=== PATIENT | female | born 1990 | race Caucasian/White ===

== ENCOUNTER 2016-12-09 18:32 | Emergency (ER) | payer MEDICAID, OTHER ==
[2016-12-09 18:33] VITALS: BMI 33.7
[2016-12-09 18:39] VITALS: RESP 16; TEMP 98.3
--- NOTE | 2016-12-09 19:18 | ED PDOC ---
Arrival/HPI - General Chief Complaint: Abdominal Pain Time Seen by Provider: 12/09/16 18:34 Historian: Patient - History of Present Illness Narrative History of Present Illness (Text): 12/09/16 19:00 This 26 yo female without significant pmh, Gravid, , 17 weeks, presents to this ED c/o pelvic pain since this morning. Patient described pelvic pain as cramping, non-radiating, lasting for few seconds. Denies dysuria, vaginal discharge, vaginal bleeding, rectal pain, recent travel, sick contact, recent travel, leg swelling, calf pain, sob, cp, n/v, or abnormal gait. Time/Duration: Other (since this morning) Context: Home Past Medical History - Provider Review Nursing Documentation Reviewed: Yes - Infectious Disease Hx of Infectious Diseases: None - Tetanus Immunization Tetanus Immunization: Unknown - Past Medical History Past Medical History: No Previous - Cardiac Hx Cardiac Disorders: No - HEENT Other/Comment: GLASSES - Gastrointestinal Hx Hemorrhoids: Yes - Psychiatric Hx Depression: No Hx Substance Use: No - Past Surgical History Past Surgical History: No Previous - Anesthesia Hx Anesthesia: No Hx Anesthesia Reactions: No Hx Malignant Hyperthermia: No - Suicidal Assessment Feels Threatened In Home Enviroment: No Family/Social History - Physician Review Nursing Documentation Reviewed: Yes Family/Social History: No Known Family HX Smoking Status: Light Smoker < 10 Cigarettes Daily Hx Alcohol Use: Yes Hx Substance Use: No Hx Substance Use Treatment: No Allergies/Home Meds Allergies/Adverse Reactions: Allergies No Known Allergies Allergy (Verified 12/09/16 18:33) Home Medications: Home Meds Medication Instructions Recorded Confirmed Multivit/Folic Acid/I 1 tab PO DAILY 12/09/16 12/09/16 [] Review of Systems - Review of Systems Constitutional: Normal. absent: Fatigue, Weight Change, Fevers, Night Sweats Eyes: Normal. absent: Vision Changes ENT: Normal Respiratory: Normal. absent: SOB, Cough Cardiovascular: Normal. absent: Chest Pain, Palpitations, Edema, Calf Pain, LUO , Orthopnea, Syncope Gastrointestinal: Abdominal Pain (pelvic pain). absent: Nausea, Vomiting Genitourinary Female: Normal. absent: Dysuria, Frequency, Hematuria Musculoskeletal: absent: Back Pain, Neck Pain Skin: Normal. absent: Rash Neurological: Normal. absent: Headache, Dizziness, Focal Weakness, Gait Changes , Speech Changes, Facial Droop, Disequilibrium, Seizure Endocrine: Normal Hemo/Lymphatic: Normal Psychiatric: Normal Physical Exam Vital Signs Temp Pulse Resp BP Pulse Ox 12/09/16 21:46 98.3 F 85 16 126/71 98 12/09/16 18:39 98.3 F 98 H 16 120/78 97 Temperature: Afebrile Blood Pressure: Normal Pulse: Regular Respiratory Rate: Normal Appearance: Positive for: Well-Appearing, Non-Toxic, Comfortable Pain Distress: None Mental Status: Positive for: Alert and Oriented X 3 - Systems Exam Head: Present: Atraumatic, Normocephalic Pupils: Present: PERRL Extroacular Muscles: Present: EOMI Conjunctiva: Present: Normal Mouth: Present: Moist Mucous Membranes Neck: Present: Normal Range of Motion, Trachea Midline. No: Meningeal Signs Respiratory/Chest: Present: Clear to Auscultation, Good Air Exchange. No: Respiratory Distress, Accessory Muscle Use, Wheezes, Decreased Breath Sounds, Retracting, Rhonchi, Tender to Palpation Cardiovascular: Present: Regular Rate and Rhythm, Normal S1, S2. No: Murmurs Abdomen: Present: Normal Bowel Sounds, Other (Gravid abdomen). No: Tenderness, Distention, Peritoneal Signs, Rebound, Guarding Back: Present: Normal Inspection. No: CVA Tenderness Upper Extremity: Present: Normal Inspection, Normal ROM, NORMAL PULSES, Neurovascularly Intact, Capillary Refill < 2s. No: Cyanosis, Edema Lower Extremity: Present: Normal Inspection, NORMAL PULSES, Normal ROM, Neurovascularly Intact, Capillary Refill < 2 s. No: Edema, CALF TENDERNESS Neurological: Present: GCS=15, CN II-XII Intact, Speech Normal, Motor Func Grossly Intact, Normal Sensory Function, Normal Cerebellar Funct, Gait Normal, Memory Normal Skin: Present: Warm, Dry, Normal Color. No: Rashes Psychiatric: Present: Alert, Oriented x 3, Normal Insight, Normal Concentration Medical Decision Making ED Course and Treatment: 12/09/16 21:20 Re-evaluation. Patient feels better. Discussed results and plan with patient who expresses understanding. All questions answered and there is agreement with the plan to discharge home with instructions. Patient stable for discharge. Return if symptoms persist or worsen. Re-evaluation Time: 21:20 Reassessment Condition: Re-examined, Improved - Lab Interpretations Microbiology Results: Microbiology Results 12/09/16 19:52 Urine,Clean Catch Urine Culture - Final Streptococcus Viridans Lab Results: 12/09/16 19:47 12/09/16 19:47 Lab Results 12/09/16 19:52: Urine Color Yellow, Urine Appearance Clear, Urine pH 6.0, Ur Specific [place] 1.025, Urine Protein Trace H, Urine Glucose (UA) Negative, Urine Ketones Trace H, Urine Blood Negative, Urine Nitrate Negative, Urine Bilirubin Negative, Urine Urobilinogen 1.0 H, Ur Leukocyte Esterase Negative, Urine RBC 1 - 3, Urine WBC 2 - 5, Ur Epithelial Cells 1 - 3, Calcium Oxalate Crystal Occ, Urine Bacteria Mod, Urine HCG, Qual Positive 12/09/16 19:50: Blood Type B POSITIVE, Antibody Screen Negative, BBK History Checked Patient has bt 12/09/16 19:47: Beta HCG, Quant 6137.20 H 12/09/16 19:47: Sodium 137, Potassium 3.8, Chloride 105, Carbon Dioxide 24, Anion Gap 12, BUN 9, Creatinine 0.7, Est GFR ( Amer) > 60, Est GFR (Non- Af Amer) > 60, Random Glucose 121 H, Calcium 9.7, Total Bilirubin 0.3, AST 41 H , ALT 79 H, Alkaline Phosphatase 93, Total Protein 6.8, Albumin 3.3, Globulin 3.5, Albumin/Globulin Ratio 0.9 L 12/09/16 19:47: PT 10.7, INR 0.99, APTT 28.2 12/09/16 19:47: WBC 10.6, RBC 3.87, Hgb 11.2 L, Hct 32.7 L, MCV 84.5, MCH 28.9, MCHC 34.3, RDW 14.3, Plt Count 359, MPV 9.5, Gran % 72.1 H, Lymph % (Auto) 20.2 L, [place] % (Auto) 5.5, Eos % (Auto) 2.0, Baso % (Auto) 0.2, Gran # 7.61 H, Lymph # 2.1, [place] # 0.6, Eos # 0.2, Baso # 0.02 - RAD Interpretation Narrative RAD Interpretations (Text): 12/09/16 21:19 [facility] FINDINGS: Fetus: Single live intrauterine gestation. Heart rate: heart rate of 150 beats per minute. Presentation: Cephalic. Placenta: Anterior placenta. No placenta previa or abruption. Amniotic fluid: Normal. Anatomy: No gross anomaly is appreciated. BIOMETRICS Gestational age by US: Estimated gestational age of 19 weeks 6 days by measurements. EFW: Estimated weight of 312 g. BPD: 4.5 cm, correlating with 19 weeks 4 days. HC: 17.5 cm, correlating with 20 weeks 0 days. AC: 14.3 cm, correlating with 19 weeks 5 days. FL: 3.2 cm, correlating with 19 weeks 6 days. MATERNAL: Uterus: Unremarkable. No myometrial mass. Cervix: No cervical dilatation or effacement. Adnexa: Ovaries: Not visualized. No adnexal masses. Free fluid: No significant free fluid. IMPRESSION: 1. Single live intrauterine gestation. 2. Incidental/non-acute findings are described above. Thank you for allowing us to participate in the care of your patient. Dictated and Authenticated by: Tian Weller MD 12/09/2016 9:01 PM Eastern Time ([place] & [place] Radiology Orders: 12/09/16 19:32 AGE [US] Stat - Medication Orders Current Medication Orders: Discontinued Medications Cephalexin Monohydrate (Keflex) 500 mg PO STAT STA PRN Reason: Protocol Stop: 12/09/16 21:22 Last Admin: 12/09/16 21:00 Dose: 500 mg Disposition/Present on Arrival - Present on Arrival Any Indicators Present on Arrival: No History of DVT/PE: No History of Uncontrolled Diabetes: No Urinary Catheter: No History of Decub. Ulcer: No History Surgical Site Infection Following: None - Disposition Have Diagnosis and Disposition been Completed?: Yes Diagnosis: Pelvic pain affecting , Acute cystitis during Disposition: HOME/ ROUTINE Disposition Time: 21:20 Patient Plan: Discharge Condition: GOOD Discharge Instructions (ExitCare): Pelvic Pain (ED) Additional Instructions: Call private [facility] doctor for follow up visit in 1-2 days. Take medication as instructed. Return to emergency if symptoms worsen. Prescriptions: Cephalexin [Keflex] 500 mg PO BID #10 capsule Referrals: Khanh Peter MD [Primary Care Provider] - Follow up with primary [facility] [Outside] - [facility] [Outside] - Follow up with primary Forms: WORK NOTE
[2016-12-09 19:53] LABS: ADD MANUAL DIFF? NO
[2016-12-09 20:03] LABS: URINE BILIRUBIN NEGATIVE (NEGATIVE); URINE BLOOD NEGATIVE (NEGATIVE); URINE GLUCOSE (UA) NEGATIVE (NEGATIVE); URINE KETONE TRACE mg/dL (NEGATIVE); URINE LEUKOCYTE ESTERASE NEGATIVE Leu/uL (NEGATIVE); URINE PROTEIN TRACE mg/dL (<30 mg/dL)
[2016-12-09 20:04] LABS: BASO # 0.02 K/mm3 (0.0-2.0); BASO % 0.2 % (0.0-3.0); EOS # 0.2 (0.0-0.7); GRAN # 7.61 (1.4-6.5); GRAN % 72.1 % (50.0-68.0); HEMATOCRIT 32.7 % (36.0-48.0); LYMPH # 2.1 (1.2-3.4); LYMPH % 20.2 % (22.0-35.0); MEAN CELL VOLUME 84.5 fL (80.0-105.0); MEAN CORPUSCULAR HEMOGLOBIN 28.9 pg (25.0-35.0); MEAN CORPUSCULAR HGB CONC 34.3 g/dl (31.0-37.0); MEAN PLATELET VOLUME 9.5 fl (7.0-11.0); MONO # 0.6 (0.1-0.6); MONO % 5.5 % (1.0-6.0); PLATELET COUNT 359 10^3/uL (120.0-450.0); RED CELL DISTRIBUTION WIDTH 14.3 % (11.5-14.5); WHITE BLOOD COUNT 10.6 10^3/ul (4.5-11.0)
[2016-12-09 20:08] LABS: ALB/GLOB RATIO 0.9 (1.1-1.8); ALKALINE PHOSPHATASE 93 U/L (38-133); ALT/SGPT 79 U/L (7-56); AST/SGOT 41 U/L (15-39); BILIRUBIN,TOTAL 0.3 mg/dL (0.2-1.3); BLOOD UREA NITROGEN 9 mg/dL (7-21); CALCIUM 9.7 mg/dL (8.4-10.5); CARBON DIOXIDE 24 mmol/L (21-33); CHLORIDE 105 mmol/L (98-107); GFR AFRICAN-AMERICAN > 60; GLUCOSE,RANDOM 121 mg/dL (70-110); POTASSIUM 3.8 mmol/L (3.6-5.0); SODIUM 137 mmol/L (132-148); TOTAL PROTEIN 6.8 g/dL (5.8-8.3)
[2016-12-09 20:10] LABS: INR 0.99 (0.93-1.08); PARTIAL THROMBOPLASTIN TIME 28.2 Seconds (23.7-30.8)
[2016-12-09 20:11] LABS: URINE APPEARANCE CLEAR (CLEAR); URINE COLOR YELLOW (YELLOW)
[2016-12-09 20:25] LABS: URINE CALCIUM OXALATE CRYSTALS OCC /hpf
[2016-12-09 20:26] LABS: URINE BACTERIA MOD (NEG)
--- NOTE | 2016-12-09 21:01 | US ---
EXAM: US After First Trimester, Transabdominal CLINICAL HISTORY: 26 years old, female; Pain; complicated by abdominal or pelvic pain; Right lower quadrant; Second trimester; Gestational age or lmp: ? ; ; Additional info: B. L pelvic pain TECHNIQUE: Real-time transabdominal obstetrical ultrasound of the maternal pelvis and a second or third trimester with image documentation. COMPARISON: No relevant prior studies available. FINDINGS: Fetus: Single live intrauterine gestation. Heart rate: heart rate of 150 beats per minute. Presentation: Cephalic. Placenta: Anterior placenta. No placenta previa or abruption. Amniotic fluid: Normal. Anatomy: No gross anomaly is appreciated. BIOMETRICS Gestational age by US: Estimated gestational age of 19 weeks 6 days by measurements. EFW: Estimated weight of 312 g. BPD: 4.5 cm, correlating with 19 weeks 4 days. HC: 17.5 cm, correlating with 20 weeks 0 days. AC: 14.3 cm, correlating with 19 weeks 5 days. FL: 3.2 cm, correlating with 19 weeks 6 days. MATERNAL: Uterus: Unremarkable. No myometrial mass. Cervix: No cervical dilatation or effacement. Adnexa: Ovaries: Not visualized. No adnexal masses. Free fluid: No significant free fluid. IMPRESSION: 1. Single live intrauterine gestation. 2. Incidental/non-acute findings are described above.
[2016-12-09 21:47] VITALS: BP 126/71; PULSE 85; O2SAT 98
== END 2016-12-09 21:51 | disposition home or self-care (01) ==
LOC: ED 18:32
DX: O26.92 Pregnancy related conditions, unspecified, second trimester (principal); Z3A.19 19 weeks gestation of pregnancy; N30.00 Acute cystitis without hematuria; R10.2 Pelvic and perineal pain

== ENCOUNTER 2017-11-15 12:17 | Emergency (ER) | payer OTHER ==
[2017-11-15 12:38] VITALS: BMI 45.7
[2017-11-15 12:41] VITALS: RESP 18; TEMP 99.8; O2SAT 97
[2017-11-15] MEDS ORDERED: Sodium Chloride 0.9% 1,000 ML IV STA (12:47)
--- NOTE | 2017-11-15 12:57 | ED PDOC ---
Arrival/HPI - General Chief Complaint: GI Problem Time Seen by Provider: 11/15/17 12:44 Historian: Patient - History of Present Illness Narrative History of Present Illness (Text): 11/15/17 12:45 Suzy Gee is a 27 year old female who presents to the emergency department complaining of vomiting and watery diarrhea since last night. Patient experiences associated back aches whcih prompted her to come the emergency department. Patient denies any fever, recent travels, abdominal pain, or any other complaints at this time. Time/Duration: 24 hours Symptom Onset: Gradual Symptom Course: Unchanged Activities at Onset: Light Context: Home Past Medical History - Provider Review Nursing Documentation Reviewed: Yes - Infectious Disease Hx of Infectious Diseases: None - Tetanus Immunization Tetanus Immunization: Unknown - Past Medical History Past Medical History: No Previous - Cardiac Hx Cardiac Disorders: No - HEENT Other/Comment: GLASSES - Gastrointestinal Hx Hemorrhoids: Yes - Psychiatric Hx Depression: No Hx Substance Use: No - Past Surgical History Past Surgical History: No Previous - Anesthesia Hx Anesthesia: No Hx Anesthesia Reactions: No Hx Malignant Hyperthermia: No - Suicidal Assessment Feels Threatened In Home Enviroment: No Family/Social History - Physician Review Nursing Documentation Reviewed: Yes Family/Social History: No Known Family HX Smoking Status: Former Smoker Hx Alcohol Use: Yes Frequency of alcohol use: Socially Hx Substance Use: No Hx Substance Use Treatment: No Allergies/Home Meds Allergies/Adverse Reactions: Allergies No Known Allergies Allergy (Verified 12/09/16 18:33) Review of Systems - Physician Review All systems were reviewed & negative as marked: Yes - Review of Systems Constitutional: absent: Fevers, Night Sweats Eyes: absent: Vision Changes ENT: absent: Hearing Changes Respiratory: absent: SOB Cardiovascular: absent: Chest Pain Gastrointestinal: Diarrhea, Vomiting Genitourinary Female: absent: Dysuria, Frequency Musculoskeletal: absent: Arthralgias Skin: absent: Rash, Pruritis Neurological: absent: Headache, Dizziness Endocrine: absent: Diaphoresis Hemo/Lymphatic: absent: Adenopathy Psychiatric: absent: Anxiety, Depression Physical Exam - Physical Exam Narrative Physical Exam (Text): Constitutional: No acute distress. Head: Normocephalic. Atraumatic. Eyes: PERRL. ENT: Moist mucous membranes. Neck: Supple. Cardiovascular: Regular rate. Chest: No tenderness. Respiratory: Clear to auscultation bilaterally. GI: Soft. Nontender. Nondistended. Back: No CVA tenderness. Musculoskeletal: No tenderness or swelling of extremities. Skin: No rash. Neurologic: Alert, no focal deficit. Vital Signs Reviewed: Yes Vital Signs Temp Pulse Resp BP Pulse Ox 11/15/17 12:40 99.8 F H 102 H 18 114/75 97 Temperature: Febrile Blood Pressure: Normal Pulse: Tachycardic Respiratory Rate: Normal Appearance: Positive for: Well-Appearing, Non-Toxic, Comfortable Pain Distress: None Mental Status: Positive for: Alert and Oriented X 3 Medical Decision Making ED Course and Treatment: 11/15/17 13:12 Impression: 27 year old female complaining of vomiting and diarrhea since last night. Plan: -- Urinalysis -- Labs -- Zofran and IV fluids -- Reassess and disposition Prior Visits: Notes and results from previous visits were reviewed. Patient was last seen in the emergency department on 12/09/16 for pelvic pain. Patient was discharged home. Progress Notes: 11/15/17 14:03 Labs unremarkable. Will discharge, continue fluids, Zofran, f/u PMD, instructed to return to Emergency department for lethargy, intractible vomiting, or any other problem. - Lab Interpretations Lab Results: 11/15/17 13:10 11/15/17 13:10 Lab Results 11/15/17 13:10: Sodium 142, Potassium 4.1, Chloride 103, Carbon Dioxide 26, Anion Gap 17, BUN 14, Creatinine 0.6 L, Est GFR ( Amer) > 60, Est GFR ( Non-Af Amer) > 60, Random Glucose 119 H, Calcium 9.2, Total Bilirubin 0.4, AST 29, ALT 38, Alkaline Phosphatase 122, Total Protein 7.8, Albumin 4.5, Globulin 3.3, Albumin/Globulin Ratio 1.3, Lipase 78 11/15/17 13:10: Urine Color Yellow, Urine Appearance Sl cloudy, Urine pH 8.0, Ur Specific [place] 1.020, Urine Protein 30 H, Urine Glucose (UA) Negative, Urine Ketones Negative, Urine Blood Negative, Urine Nitrate Negative, Urine Bilirubin Negative, Urine Urobilinogen 1.0 H, Ur Leukocyte Esterase Negative, Urine RBC 0 - 2, Urine WBC Negative, Ur Epithelial Cells 0 - 2, Urine Bacteria Trace, Urine HCG, Qual Negative 11/15/17 13:10: WBC 9.7, RBC 4.91, Hgb 13.1, Hct 39.4, MCV 80.2, MCH 26.7, MCHC 33.2, RDW 13.8, Plt Count 388, MPV 9.0, Gran % 91.7 H, Lymph % (Auto) 5.0 L, [place] % (Auto) 2.8, Eos % (Auto) 0.4 L, Baso % (Auto) 0.1, Gran # 8.90 H, Lymph # (Auto) 0.5 L, [place] # (Auto) 0.3, Eos # (Auto) 0.0, Baso # (Auto) 0.01, Neutrophils % (Manual) 91 H, Band Neutrophils % 1, Lymphocytes % (Manual) 5 L, Monocytes % (Manual) 3, Platelet Evaluation Normal - Medication Orders Current Medication Orders: Discontinued Medications Sodium Chloride (Sodium Chloride 0.9%) 1,000 mls @ 999 mls/hr IV .Q1H1M STA Stop: 11/15/17 13:47 Last Admin: 11/15/17 13:14 Dose: 999 mls/hr eMAR Start Stop Document 11/15/17 13:14 HI (Rec: 11/15/17 13:14 HI [id number]) Intravenous Solution Start Date 11/15/17 Start Time 13:14 Ondansetron HCl (Zofran Inj) 8 mg IVP STAT STA Stop: 11/15/17 12:48 Last Admin: 11/15/17 13:10 Dose: 8 mg IVP Administration Document 11/15/17 13:10 HI (Rec: 11/15/17 13:13 HI [id number]) Charges for Administration # of IVP Administrations 1 - Scribe Statement The provider has reviewed the documentation as recorded by the Alexis Herring Provider Scribe Attestation: All medical record entries made by the Scribe were at my direction and personally dictated by me. I have reviewed the chart and agree that the record accurately reflects my personal performance of the history, physical exam, medical decision making, and the department course for this patient. I have also personally directed, reviewed, and agree with the discharge instructions and disposition. Disposition/Present on Arrival - Present on Arrival Any Indicators Present on Arrival: No History of DVT/PE: No History of Uncontrolled Diabetes: No Urinary Catheter: No History of Decub. Ulcer: No History Surgical Site Infection Following: None - Disposition Have Diagnosis and Disposition been Completed?: Yes Diagnosis: Vomiting and diarrhea Disposition: HOME/ ROUTINE Disposition Time: 14:03 Patient Plan: Discharge Condition: STABLE Discharge Instructions (ExitCare): Viral Gastroenteritis Prescriptions: Ondansetron ODT [Zofran ODT] 8 mg PO Q8 PRN #12 odt PRN Reason: Nausea/Vomiting Referrals: Khanh Peter MD [Primary Care Provider] - Follow up with primary Forms: [facility] (Uzbek), WORK NOTE
[2017-11-15 13:22] LABS: BASO # 0.01 K/mm3 (0.0-2.0); BASO % 0.1 % (0.0-3.0); EOS % 0.4 % (1.5-5.0); GRAN % 91.7 % (50.0-68.0); HEMOGLOBIN 13.1 g/dL (12.0-16.0); LYMPH # 0.5 (1.2-3.4); MEAN CELL VOLUME 80.2 fl (80.0-105.0); MEAN CORPUSCULAR HEMOGLOBIN 26.7 pg (25.0-35.0); MEAN CORPUSCULAR HGB CONC 33.2 g/dl (31.0-37.0); MONO # 0.3 (0.1-0.6); MONO % 2.8 % (1.0-6.0); PLATELET COUNT 388 10^3/uL (120.0-450.0); RBC 4.91 10^6/uL (3.5-6.1); RED CELL DISTRIBUTION WIDTH 13.8 % (11.5-14.5); WHITE BLOOD COUNT 9.7 10^3/ul (4.5-11.0)
[2017-11-15 13:26] LABS: HCG,QUALITATIVE URINE NEGATIVE (NEGATIVE); URINE BILIRUBIN NEGATIVE (NEGATIVE); URINE BLOOD NEGATIVE (NEGATIVE); URINE GLUCOSE (UA) NEGATIVE (NEGATIVE); URINE LEUKOCYTE ESTERASE NEGATIVE Leu/uL (NEGATIVE); URINE PROTEIN 30 mg/dL (<30 mg/dL)
[2017-11-15 13:29] LABS: URINE APPEARANCE SL CLOUDY (CLEAR); URINE COLOR YELLOW (YELLOW)
[2017-11-15 13:31] LABS: URINE BACTERIA TRACE (NEG); URINE EPITHELIAL CELLS 0 - 2 /hpf (0-5); URINE RBC 0 - 2 /hpf (0-2); URINE WBC NEGATIVE /hpf (0-6)
[2017-11-15 13:35] LABS: ALB/GLOB RATIO 1.3 (1.1-1.8); ALBUMIN 4.5 g/dL (3.0-4.8)
[2017-11-15 13:47] LABS: BAND 1 % (0-2); LYMPHOCYTE 5 % (22.0-35.0); MONOCYTE 3 % (1.0-6.0); NEUTROPHIL 91 % (50.0-70.0); PLATELET ESTIMATE NORMAL (NORMAL)
[2017-11-15 13:56] LABS: ALT/SGPT 38 U/L (7-56); AST/SGOT 29 U/L (14-36); BLOOD UREA NITROGEN 14 mg/dL (7-21); CALCIUM 9.2 mg/dL (8.4-10.5); GFR AFRICAN-AMERICAN > 60; GFR NON-AFRICAN AMERICAN > 60; LIPASE 78 U/L (23-300)
[2017-11-15 14:55] VITALS: BP 112/78; PULSE 87
== END 2017-11-15 14:54 | disposition home or self-care (01) ==
LOC: ED 12:17
DX: R19.7 Diarrhea, unspecified (principal); R11.10 Vomiting, unspecified; Z87.891 Personal history of nicotine dependence
CPT/HCPCS: 80053; 81001; 83690; 84703; 85025; 87086; 96374; 96375; 99284; J1885; J2405; J7040

== ENCOUNTER 2018-10-11 10:07 | Emergency (ER) | payer OTHER ==
[2018-10-11 10:07] VITALS: BMI 45.7
[2018-10-11 10:15] VITALS: TEMP 98.5
--- NOTE | 2018-10-11 11:13 | ED PDOC ---
Arrival/HPI - General Chief Complaint: Lower Extremity Problem/Injury Time Seen by Provider: 10/11/18 10:08 Historian: Patient - History of Present Illness Narrative History of Present Illness (Text): 10/11/18 21:21 28 y/o female with no significant PMH presents to the ED c/o right foot pain and swelling x 1 week. Pain is located over 1st metatarsal, worse with ambulation. Has been taking ibuprofen with mild relief, last this morning. Denies trauma or injury. No recent travel, long immobilizations, hormone use, or history of malignancy. Denies fever, chills, numbness, weakness, paresthesias, calf pain, SOB, or any other associated symptoms. Past Medical History - Provider Review Nursing Documentation Reviewed: Yes - Infectious Disease Hx of Infectious Diseases: None - Tetanus Immunization Tetanus Immunization: Unknown - Past Medical History Past Medical History: No Previous - Cardiac Hx Cardiac Disorders: No - Pulmonary Hx Respiratory Disorders: No - Neurological Hx Neurological Disorder: No - HEENT Other/Comment: GLASSES - Gastrointestinal Hx Hemorrhoids: Yes - Genitourinary/Gynecological Hx Genitourinary Disorders: Yes Hx Urinary Tract Infection: Yes - Psychiatric Hx Psychophysiologic Disorder: No Hx Substance Use: No - Past Surgical History Past Surgical History: No Previous - Anesthesia Hx Anesthesia: No Hx Anesthesia Reactions: No Hx Malignant Hyperthermia: No - Suicidal Assessment Feels Threatened In Home Enviroment: No Family/Social History - Physician Review Nursing Documentation Reviewed: Yes Family/Social History: No Known Family HX Smoking Status: Former Smoker Hx Alcohol Use: Yes Hx Substance Use: No Hx Substance Use Treatment: No Allergies/Home Meds Allergies/Adverse Reactions: Allergies No Known Allergies Allergy (Verified 10/11/18 10:09) Review of Systems - Physician Review All systems were reviewed & negative as marked: Yes - Review of Systems Constitutional: Normal. absent: Fevers Eyes: Normal. absent: Vision Changes, Photophobia ENT: Normal. absent: Sore Throat, Sinus Congestion Respiratory: Normal. absent: SOB, Cough Cardiovascular: Normal. absent: Chest Pain, Palpitations Gastrointestinal: Normal. absent: Abdominal Pain, Nausea, Vomiting Genitourinary Female: Normal. absent: Dysuria, Frequency Musculoskeletal: Arthralgias Skin: Normal. absent: Rash, Cellulitis Neurological: Normal. absent: Headache, Dizziness Endocrine: Normal Hemo/Lymphatic: Normal Psychiatric: Normal Physical Exam Vital Signs Reviewed: Yes Vital Signs Temp Pulse Resp BP Pulse Ox 10/11/18 10:10 98.5 F 77 16 107/65 97 Temperature: Afebrile Blood Pressure: Normal Pulse: Regular Respiratory Rate: Normal Appearance: Positive for: Well-Appearing, Non-Toxic, Comfortable Pain Distress: None Mental Status: Positive for: Alert and Oriented X 3 - Systems Exam Head: Present: Atraumatic, Normocephalic Pupils: Present: PERRL Extroacular Muscles: Present: EOMI Conjunctiva: Present: Normal Mouth: Present: Moist Mucous Membranes Neck: Present: Normal Range of Motion Respiratory/Chest: Present: Clear to Auscultation, Good Air Exchange. No: Respiratory Distress, Accessory Muscle Use Cardiovascular: Present: Regular Rate and Rhythm, Normal S1, S2, Peripheal Pulses Present. No: Murmurs Upper Extremity: Present: Normal Inspection, Normal ROM, NORMAL PULSES, Neurovascularly Intact, Capillary Refill < 2s. No: Cyanosis, Edema Lower Extremity: Present: Normal Inspection, NORMAL PULSES, Normal ROM, Tenderness (over right foot 1st MTP), Swelling (mild to medial right foot), Neurovascularly Intact, Capillary Refill < 2 s. No: Edema, CALF TENDERNESS, Temperature Abnormalties Neurological: Present: GCS=15, CN II-XII Intact, Speech Normal, Motor Func Grossly Intact, Normal Sensory Function, Gait Normal Skin: Present: Warm, Dry, Normal Color. No: Rashes Psychiatric: Present: Alert, Oriented x 3, Normal Insight, Normal Concentration, Normal Affect, Normal Mood Medical Decision Making ED Course and Treatment: 10/11/18 11:12 Initial Plan: * Right foot XR * Right ankle XR * Right lower extremity venous duplex * Tylenol * Ice pack * Reassessment and Disposition Xrays negative for fracture or dislocation. Venous duplex prelim read negative for DVT Reports decreased pain with medications Patient's right foot wrapped in GRACE bandage by senior process control tech. Advised PMD and podiatry followup. Given prescription for pain medication. Diagnostic testing results and plan of care discussed with patient. Strict instructions given regarding prescription use, importance of followup, and signs/symptoms to return to ER including worsening pain, numbness, weakness, paresthesias, or any other new/worsening symptoms. Pt verbalized understanding of discussion. Patient is A&Ox3, ambulating with steady gait, with vital signs stable for discharge. - RAD Interpretation Narrative RAD Interpretations (Text): 10/11/18 21:28 Right Ankle XR: FINDINGS: BONES: Bone alignment and mineralization are normal. There is no acute displaced fracture or bone destruction. JOINTS: Normal. No osteoarthritis. Ankle mortise maintained. Talar dome intact SOFT TISSUES: Normal. OTHER FINDINGS: None. IMPRESSION: No acute fracture or dislocation. Right Foot XR: FINDINGS: BONES: Bone alignment and mineralization are normal. There is no acute displaced fracture or bone destruction. JOINTS: Normal. SOFT TISSUES: There is mild medial soft tissue swelling. OTHER FINDINGS: None. IMPRESSION: No acute fracture or dislocation. Mild medial soft tissue swelling. Radiology Orders: 10/11/18 10:17 ANKLE RIGHT 3 VIEWS ROUTINE [RAD] Stat 10/11/18 10:40 FOOT RIGHT 3 VIEWS ROUTINE [RAD] Stat 10/11/18 10:41 DUPLEX LOWER EXTRM VEIN RIGHT [US] Stat Entomology Teacher: Radiologist - Medication Orders Current Medication Orders: Discontinued Medications Acetaminophen (Tylenol 325mg Tab) 650 mg PO STAT STA Stop: 10/11/18 10:56 Last Admin: 10/11/18 10:59 Dose: 650 mg MAR Pain/Vitals Document 10/11/18 10:59 OCS (Rec: 10/11/18 10:59 [place] [facility] [id number] Pain Reassessment Is This A Pain ReAssessment? No Sleep Is patient sleeping during reassessment? No Presence of Pain Presence of Pain Yes Pain Scale Used Protocol: PSCALES Pain Scale Used Numeric Location Left, Right or Bilateral Right Pain Location Body Site Ankle Description Constant Intensity 9 Scale Used Numeric Pain Behavior Irritability Facial Grimacing Aggravating Factors ADL's Changing Position Disposition/Present on Arrival - Present on Arrival Any Indicators Present on Arrival: No History of DVT/PE: No History of Uncontrolled Diabetes: No Urinary Catheter: No History of Decub. Ulcer: No History Surgical Site Infection Following: None - Disposition Have Diagnosis and Disposition been Completed?: Yes Diagnosis: Foot pain Disposition: HOME/ ROUTINE Disposition Time: 13:16 Condition: STABLE Discharge Instructions (ExitCare): Metatarsalgia (DC) Additional Instructions: Ibuprofen every 8 hours as needed for pain Compress, rest, elevate foot Followup with podiatry within 2 days Return to ER with any new/worsening symptoms Prescriptions: Ibuprofen [Motrin Tab] 600 mg PO Q8 PRN #30 tab PRN Reason: Pain, Moderate (4-7) Referrals: Podiatry Clinic [Outside] - Follow up with primary Khanh Peter MD [Primary Care Provider] - Follow up with primary Forms: [employer] (Divehi), WORK NOTE
[2018-10-11 12:09] VITALS: RESP 17; O2SAT 100
--- NOTE | 2018-10-11 13:18 | RAD ---
Date of service: 10/11/2018 PROCEDURE: Right Ankle Radiographs. HISTORY: ankle pain COMPARISON: None available. FINDINGS: BONES: Bone alignment and mineralization are normal. There is no acute displaced fracture or bone destruction. JOINTS: Normal. No osteoarthritis. Ankle mortise maintained. Talar dome intact SOFT TISSUES: Normal. OTHER FINDINGS: None. IMPRESSION: No acute fracture or dislocation.
--- NOTE | 2018-10-11 13:20 | RAD ---
Date of service: 10/11/2018 PROCEDURE: Right Foot Radiographs. HISTORY: medial foot pain COMPARISON: None. FINDINGS: BONES: Bone alignment and mineralization are normal. There is no acute displaced fracture or bone destruction. JOINTS: Normal. SOFT TISSUES: There is mild medial soft tissue swelling. OTHER FINDINGS: None. IMPRESSION: No acute fracture or dislocation. Mild medial soft tissue swelling.
[2018-10-11 14:09] VITALS: BP 120/69; PULSE 77
--- NOTE | 2018-10-11 17:56 | US ---
PROCEDURE: Right lower extremity venous US HISTORY: Leg pain and swelling. Evaluate for DVT. PHYSICIAN(S): Bola Parsons M.D. TECHNIQUE: Duplex sonography and color-flow Doppler with graded compression were used to evaluate the deep venous system of the right lower extremity. FINDINGS: The visualized deep venous system of the right lower extremity is sonographically normal and compressible. Normal waveforms and augmentation are seen. There is no sonographic evidence for deep venous thrombosis in the visualized segments of the right lower extremity. IMPRESSION: 1. No sonographic evidence for deep venous thrombosis in the visualized segments of the right lower extremity.
== END 2018-10-11 13:35 | disposition home or self-care (01) ==
LOC: ED 10:07
DX: M79.671 Pain in right foot (principal); Z87.891 Personal history of nicotine dependence